=== PATIENT | female | born 1970 | race Caucasian/White ===

== ENCOUNTER 2020-12-13 06:33 | Day surgery (SDC) | payer OTHER ==
[~2020-12-13 06:33] MED LIST: CLEOCIN300 MG PO; FLEXERIL10 MG PO; HYDROCODON-ACE1 EAC6 PO; LIDOCAINE 5% P1 EACH TOP; LYRICA150 MG PO; VOLTAREN **OUT75 MG PO; XARELTO10 MG PO
[2020-12-13 06:58] LABS: HCG (URINE) SCREEN NEGATIVE (NEGATIVE)
--- NOTE | 2020-12-13 16:05 | NUR ---
MET WITH PT. AND SPOUSE. ADVISED THAT PT. WILL HAVE THERAPY AT [facility] TOMORROW AND I WILL NEED TO MAKE HER AN APPT. WITH [facility] FOR SUNDAY. APPT. AT [facility] 12/15/2020 @ 2:00 P.M. PT.SPOUSE SIGNED THE CHOICE FORM. PT. HAS A ROLLING WALKER.
[2020-12-14 06:28] LABS: BASOPHIL 0.4 % (0-2); EOSINOPHIL 0.5 % (0-5); HCT 33.4 % (37.0-47.0); HGB 11.5 g/dl (12.5-16.0); LYMPHOCYTE 18.1 % (15-48); MCH 30.8 pg (25.0-31.0); MCHC 34.4 g/dL (32.0-36.0); MCV 89.5 fL (78.0-100.0); MONOCYTE 7.1 % (0-12); NEUTROPHIL 73.7 % (41-80); NRBC 0; PLT 175 K/uL (150-400); RBC 3.73 M/uL (4.20-5.40); RDW 13.5 % (11.5-14.0); WBC 10.3 K/uL (4.0-10.5)
[2020-12-14 06:49] LABS: BUN/CREAT RATIO (CALC) 17.4 RATIO; CREATININE 0.69 mg/dL (0.51-0.95); POTASSIUM 3.9 mmol/L (3.5-5.1)
[2020-12-14] MEDS ORDERED: XARELTO10 MG PO (08:51)
[2020-12-14] MEDS ORDERED: FEOSOL325 MG PO (08:51)
[2020-12-14] MEDS ORDERED: ASPIRIN325 MG PO (11:08)
--- NOTE | 2020-12-14 12:15 | NUR ---
IV REMOVED, PT VERBALIZED UNDERSTANDING OF D/C INSTRUCTIONS
--- NOTE | 2020-12-14 12:38 | NUR ---
PT. TO D/C HOME ON 12/14/20 WITH SPOUSE. PT. HAS A ROLLING WALKER. PT. REQUESTED OUTPT. THERAPY AT [facility]. FIRST APPT.IS 12/15/2020 @ 2:00 P.M. PT. COPAY FOR JIMENA IS $[phone]. PT. STATES THAT SHE CANNOT AFFORD THIS AMOUNT. ADVISED DREW MCMAHAN, ORTHO LIASION. SHE HAS SPOKEN WTIH DR. ROMO WHO IS GOING TO PRESCRIBE ASPIRIN.
[2021-02-04] MEDS ORDERED: VICODIN 10/3251 EACH PO (08:25)
[2021-02-04] MEDS ORDERED: DICLOFENAC SODI75 MG PO (08:26)
== END 2020-12-14 12:58 | disposition home or self-care (01) ==
LOC: FAS 06:33
PROVIDERS: Legal Medicine
DX: M16.12 Unilateral primary osteoarthritis, left hip (principal); M87.852 Other osteonecrosis, left femur; M79.7 Fibromyalgia; F17.210 Nicotine dependence, cigarettes, uncomplicated; Z79.899 Other long term (current) drug therapy; Z96.641 Presence of right artificial hip joint; Z20.822 Contact with and (suspected) exposure to COVID-19
CPT/HCPCS: 36415; 73501; 76000; 80048; 84703; 85025; 86850; 86900; 86901; 94010; 94760; 94762; 97110; 97116; 97162; 97165; 97530-GP; 97535; C1776; J0171; J0697; J1170; J1885; J2250; J2270; J2795; J3010; J7120; U0002

== ENCOUNTER → 2021-02-07 | Day surgery (SDC) | payer OTHER ==
[~2021-02-07] MED LIST changes: +ASPIRIN325 MG PO; +DICLOFENAC SODI75 MG PO; +FEOSOL325 MG PO; +VICODIN 10/3251 EACH PO
[2021-02-07 13:05] LABS: HCG (URINE) SCREEN NEGATIVE (NEGATIVE)
[2021-02-07 13:18] LABS: HCT 38.9 % (37.0-47.0); HGB 13.3 g/dl (12.5-16.0); MCH 30.3 pg (25.0-31.0); MCHC 34.2 g/dL (32.0-36.0); MCV 88.6 fL (78.0-100.0); MPV 10.5 fL (6.0-9.5); RBC 4.39 M/uL (4.20-5.40); RDW 14.3 % (11.5-14.0); WBC 6.1 K/uL (4.0-10.5)
== END | disposition home or self-care (01) ==
LOC: FAS 12:27
PROVIDERS: Legal Medicine
DX: T81.31XA Disruption of external operation (surgical) wound, not elsewhere classified, initial encounter (principal); F17.200 Nicotine dependence, unspecified, uncomplicated; M79.7 Fibromyalgia; Z79.891 Long term (current) use of opiate analgesic; Z79.899 Other long term (current) drug therapy
CPT/HCPCS: 36415; 84703; 87070; 87075; 87205; J0690; J1100; J1170; J1885; J2250; J2405; J2704; J2795; J3010; J3260; J7120